=== PATIENT | female | born 1985 | race African-American/Black ===

== ENCOUNTER 2016-12-28 22:30 | Observation (INO) | payer MEDICAID ==
[~2016-12-28] VITALS: Ht 172.7 cm; Wt 95.3 kg
[2016-12-28 22:58] LABS: Urine RBC None Seen /hpf (0 - 4)
[2016-12-28 23:07] LABS: Urine Bilirubin Negative (Negative); Urine Blood Negative /uL (Negative); Urine Color Yellow (Yellow); Urine Glucose Normal (Normal); Urine Ketone Negative (Negative); Urine Nitrite Negative (Negative); Urine Squamous Epithelial Cell FEW /hpf (<5); Urine Urobilinogen Normal (Negative)
[2016-12-28] MEDS ORDERED: ACETAMINOPHEN 325 MG TAB PO ONE (23:54)
[2016-12-29 00:23] LABS: Basophils # (auto) 0.1 uL; Eosinophils # (auto) 0.4 uL; Eosinophils % (auto) 4.3 % (0.0-7.0); Hematocrit 33.8 % (36.0-46.0); Hemoglobin 11.3 g/dL (12.2-16.2); Lymphocytes # (auto) 2.6 uL; Lymphocytes % (auto) 26.9 % (10.0-50.0); Mean Corpuscular Hemoglobin 30.2 pg (28.0-32.0); Mean Corpuscular Hgb Conc. 33.4 g/dL (32.0-36.0); Mean Corpuscular Volume 90.4 fL (80.0-100.0); Mean Platelet Volume 7.7 fL (7.4-10.4); Monocytes # (auto) 1.1 uL; Monocytes % (auto) 11.2 % (0.0-12.0); Neutrophils # (auto) 5.6 uL; Neutrophils % (auto) 56.6 % (37.0-80.0); Platelet Count (auto) 302 10^3/uL (140-450); Red Cell Distribution Width 12.6 % (11.6-16.0); White Blood Cell 9.8 10^3/uL (4.4-10.8)
[2016-12-29] MEDS ORDERED: LACTATED RINGER'S 1,000 ML IV ONE (00:30)
[2016-12-29] MEDS ORDERED: ACETAMINOPHEN 325 MG TAB PO PRN (00:30)
[2016-12-29 00:44] LABS: Albumin 2.4 g/dL (3.4-5.0); Calcium 8.6 mg/dL (8.5-10.1)
[2016-12-29 00:47] LABS: Bilirubin, Total 0.4 mg/dL (0.2-1.0); Total Protein 5.7 g/dL (6.4-8.2)
[2016-12-29 00:50] LABS: INR 0.93 (0.9-1.15); Partial Thromboplastin Time 28.1 sec (22.64-33.71)
[2016-12-29 00:54] LABS: Potassium 2.9 mmol/L (3.5-5.1)
[2016-12-29 01:02] LABS: Uric Acid 2.3 mg/dL (2.6-6.0)
[2016-12-29] MEDS ORDERED: POTASSIUM CHL 20MEQ/100ML 100 ML IV SCH (01:45)
[2016-12-29] MEDS ORDERED: POTASSIUM CHL 20 Meq TABLET PO ONE (01:45)
[2016-12-29] MEDS: TERBUTALINE SULFATE 1 MG/ML 1ML VIAL SC SCH ×2 (01:48→02:05)
== END 2016-12-29 00:25 | disposition home or self-care (01) | DRG 566 ==
LOC: LDRP 22:30
PROVIDERS: ADMIT Specialist; ATTEND Specialist
DX: O13.3 Gestational [pregnancy-induced] hypertension without significant proteinuria, third trimester (principal); O34.219 Maternal care for unspecified type scar from previous cesarean delivery; Z3A.37 37 weeks gestation of pregnancy
CPT/HCPCS: 36415; 59025; 76818; 80053; 80307; 81001; 84550; 85025; 85362; 85379; 85610; 85730; 86850; 86900; 86901; 96360; 96372; G0378; J3105

== ENCOUNTER → 2016-12-28 | Emergency (ER) | payer MEDICAID | END | disposition left against medical advice (07) | LOC: ER 22:22 | DX: I10 Essential (primary) hypertension (principal); Z53.21 Procedure and treatment not carried out due to patient leaving prior to being seen by health care provider ==